=== PATIENT | male | born 1970 | race Caucasian/White ===

== ENCOUNTER 2017-10-30 06:44 | Day surgery (SDC) | payer OTHER ==
[2017-10-23 12:15] VITALS: BMI 22.4
[~2017-10-30 06:44] MED LIST: HEPARIN SODIUM,PORCINE 5,000 UNIT/ML 1 ML VIAL SQ ONE; MORPHINE SULFATE 2 MG/ML SYRINGE IV PRN; ceFAZolin IN SWFI 2 GM/20 ML SYRINGE IVP ONE
[2017-10-30] MEDS: LACTATED RINGERS 1,000 ML IV SCH ×3 (07:12→07:52)
[2017-10-30] MEDS: LIDOCAINE 1% 20 ML VIAL (10MG/ML) FOR IV START INTRADERMA ONE ×2 (07:13→07:16)
[2017-10-30 07:16] LABS: Glucose,Whole Blood 115 mg/dL (75-99)
[2017-10-30] MEDS ORDERED: ONDANSETRON 4 MG/2 ML VIAL IVP ONE (07:25)
[2017-10-30] MEDS ORDERED: DEXAMETHASONE SOD PHOSPHATE 10 MG/ML 1 ML VIAL IV ONE (07:27)
[2017-10-30] MEDS ORDERED: BUPIVACAINE (PF) 0.5% 30 ML VIAL SQ ONE ×2 (07:31→09:06)
--- NOTE | 2017-10-30 07:47 | P.GSHP ---
History of Present Illness H&P Date: 10/30/17 Chief Complaint: Right inguinal hernia, umbilical hernia This a 47-year-old male referred from Dr. Martinez. Patient rents today for laparoscopic robotic-assisted repair of right inguinal hernia and umbilical hernia. Past Medical History Past Medical History: No Reported History Additional Past Medical History / Comment(s): inguinal, umbilical hernia, recent injury rt shoulder/bicep History of Any Multi-Drug Resistant Organisms: None Reported Past Surgical History: Orthopedic Surgery Additional Past Surgical History / Comment(s): arthroscopic rt knee, bunionectomy lt foot, finger surgery Past Anesthesia/Blood Transfusion Reactions: No Reported Reaction Smoking Status: Current every day smoker - Past Family History Mother Family Medical History: No Reported History Medications and Allergies Home Medications Medication Instructions Recorded Confirmed Type Ibuprofen [Motrin] 800 mg PO DAILY PRN 10/23/17 10/30/17 History Muscle Relaxer (Unknown Name) 1 tab PO Q6H PRN 10/23/17 10/30/17 History Prednisone (Unknown Dose) 1 tab PO DIRECTED 10/23/17 10/30/17 History oxyCODONE-APAP 5-325MG [Percocet 1 tab PO ONCE PRN 10/30/17 10/30/17 History 5-325 mg] Allergies Allergy/AdvReac Type Severity Reaction Status Date / Time No Known Allergies Allergy Verified 10/30/17 06:52 Surgical - Exam Vital Signs Temp Pulse Resp BP Pulse Ox 99.4 F 100 16 132/80 98 10/30/17 07:05 10/30/17 07:05 10/30/17 07:05 10/30/17 07:05 10/30/17 07:05 - General well developed, no distress - Eyes PERRL - ENT normal pinna - Neck no masses - Respiratory normal expansion - Cardiovascular Rhythm: regular - Abdomen Abdomen: soft, non tender Hernia: inguinal (Reducible right inguinal hernia), umbilical Results - Labs Abnormal Lab Results - Last 24 Hours (Table) 10/30/17 Range/Units 07:10 POC Glucose (mg/dL) 115 H (75-99) mg/dL Assessment and Plan Assessment: Radial hernia, umbilical hernia. We'll perform laparoscopic robotic-assisted repair.
[2017-10-30] MEDS ORDERED: fentaNYL (PF) 50 MCG/ML 2 ML AMP ONE (07:52)
[2017-10-30] MEDS ORDERED: VECURONIUM 10 MG VIAL IV ONE (07:52)
[2017-10-30] MEDS ORDERED: GLYCOPYRROLATE 0.2 MG/ML 2 ML VIAL ONE (07:52)
[2017-10-30] MEDS ORDERED: PROPOFOL 10 MG/ML 20 ML VIAL IV ONE (07:52)
[2017-10-30] MEDS ORDERED: MIDAZOLAM 2 MG/2 ML VIAL ONE (07:52)
[2017-10-30] MEDS ORDERED: HYDROmorphone (PF) 1 MG/ML ONE (07:52)
[2017-10-30] MEDS ORDERED: NEOSTIGMINE 1 MG/ML 10 ML VIAL ONE (07:52)
[2017-10-30] MEDS ORDERED: SUCCINYLCHOLINE CHLORIDE 100 MG/5 ML SYR IV ONE (07:52)
[2017-10-30] MEDS ORDERED: LIDOCAINE 1% INJ 10MG/ML (20 ML MDV) ONE (07:52)
[2017-10-30] MEDS ORDERED: KETOROLAC 30 MG/ML 1 ML VIAL ONE (07:52)
[2017-10-30] MEDS: fentaNYL (PF) 50 MCG/ML 2 ML AMP IV PRN ×2 (09:23→09:48)
[2017-10-30 09:47] VITALS: TEMP 98.5
[2017-10-30 10:04] LABS: Glucose,Whole Blood 136 mg/dL (75-99)
[2017-10-30 10:06] VITALS: RESP 18
--- NOTE | 2017-10-30 10:18 | P.OP ---
Date of Procedure: 10/30/17 Preoperative Diagnosis: Right inguinal hernia Incarcerated umbilical hernia Postoperative Diagnosis: Bilateral inguinal hernia Incarcerated umbilical hernia Procedure(s) Performed: Laparoscopic robotic repair of bilateral internal hernia Laparoscopic repair of umbilical hernia Partial omentectomy Excision of left cord lipoma Anesthesia: SAM Surgeon: Nikko Murillo Estimated Blood Loss (ml): 5 Pathology: other (Omentum's, left cord lipoma) Condition: stable Disposition: PACU Description of Procedure: The patient was placed on the operating table in the supine position. The patient received general anesthesia. The patient's abdomen was prepped and draped in usual sterile fashion. The skin was anesthetized 1% local Xylocaine at the incision sites. Using an 11 blade a skin incision was made at the umbilicus. The patient had an incarcerated umbilical hernia. There was a piece of incarcerated omentum this was removed using electrocautery. The fascia was grasped with a Colver and then the peritoneal cavity was entered with the Veress needle. Position of the Veress needle was confirmed with a positive drop test. After adequate insufflation a 5 mm trocar was placed into the peritoneal cavity. The Laparoscope was placed the peritoneal cavity. And a robotic 8 mm trocar was placed in the right lateral position and then another 8 mm robotic trochars placed in the left lateral position. The original 5 mm trocar was exchanged for a 12 mm trocar. The patient was placed in reverse Trendelenburg and then the patient was docked to the robot. Next the peritoneum over top of the hernia was incised and then using blunt and sharp dissection and electrocautery the hernia sac was dissected free from the floor of the inguinal canal. The hernia sac was completely reduced into the peritoneal cavity. And then using the Pro slip cover seamstress mesh the hernia was repaired. The peritoneum was then sutured with 2-0V lock suture. The patient was noted to have a left inguinal hernia. The hernia was repaired in identical fashion. There was a cord lipoma excised from the cord. The patient was then undocked the robot. The needle was withdrawn from the peritoneal cavity. The cord lipoma was removed and sent to pathology. The umbilical hernia site was closed with 0 Ethibond suture. The skin was closed interrupted 3-0 Monocryl suture. Dermabond dressing was applied. Patient was sent to recovery in stable condition.
[2017-10-30] MEDS ORDERED: HYDROcodone/APAP 7.5-325MG 1 EACH TAB PO ONE (10:47)
[2017-10-30 10:57] VITALS: BP 128/88; PULSE 88
== END 2017-10-30 11:35 | disposition home or self-care (01) ==
LOC: OR 06:44
PROVIDERS: ATTEND Surgery
DX: K40.20 Bilateral inguinal hernia, without obstruction or gangrene, not specified as recurrent (principal); K42.0 Umbilical hernia with obstruction, without gangrene; D17.6 Benign lipomatous neoplasm of spermatic cord; Z79.52 Long term (current) use of systemic steroids; F17.210 Nicotine dependence, cigarettes, uncomplicated
CPT/HCPCS: 88304; 88305; 49650; 49653; 55559; C1781; J2250; J1644; J1100; J2710; J2405; J2001; J3010; J1885; J1170; J0330; J2704; J0690

== ENCOUNTER 2018-02-24 12:18 | Emergency (ER) | payer OTHER ==
[2018-02-24 12:32] VITALS: BP 111/69; PULSE 111; RESP 18; TEMP 98.1
[2018-02-24] MEDS ORDERED: KETOROLAC 30 MG/ML 1 ML VIAL IM STA (13:05)
--- NOTE | 2018-02-24 13:09 | ED ---
General Adult HPI - General Chief complaint: Extremity Injury, Lower Stated complaint: left knee injury Time Seen by Provider: 02/24/18 12:57 Source: patient Mode of arrival: ambulatory Limitations: no limitations - History of Present Illness Initial comments: 48 yoM presenting with left knee pain that began Sunday. He states he was playing with a dog when he felt a pop. Since then he has limited extension of his knee secondary to pain as well as intermittent swelling. He has been trying Tylenol arthritis with minimal relief. He states he has had issues like this in the past with the knee but it usually resolves with in a day or so. He denies any other injuries. - Related Data Home Medications Medication Instructions Recorded Confirmed buPROPion [Wellbutrin] 100 mg PO BID 02/24/18 02/24/18 lamoTRIgine [LaMICtal] 25 mg PO DAILY 02/24/18 02/24/18 risperiDONE 4 mg PO DAILY 02/24/18 02/24/18 Previous Rx's Medication Instructions Recorded Ibuprofen [Motrin] 600 mg PO Q6HR PRN #30 tab 02/24/18 Allergies Allergy/AdvReac Type Severity Reaction Status Date / Time No Known Allergies Allergy Verified 02/24/18 12:32 Review of Systems ROS Statement: Those systems with pertinent positive or pertinent negative responses have been documented in the HPI. Review of Systems Constitutional: Denies fever, chills Eyes: Denies change in vision, Denies pain Ears, nose, mouth, throat: Denies headaches, Denies sore throat Cardiovascular: Denies chest pain. Denies palpitations Respiratory: Denies shortness of breath, Denies cough Gastrointestinal: Denies abdominal pain. Denies nausea, vomiting, diarrhea. Genitourinary: Denies hematuria, Denies infections Musculoskeletal: Left knee pain and swelling. Integumentary: Denies rash Neurological: Denies headache, focal weakness, focal numbness Psychiatric: Denies anxiety, Denies depression Hematologic/Lymphatic: Denies easy bleeding or bruising ROS Other: All systems not noted in ROS Statement are negative. Past Medical History Past Medical History: No Reported History Additional Past Medical History / Comment(s): inguinal, umbilical hernia, recent injury rt shoulder/bicep History of Any Multi-Drug Resistant Organisms: None Reported Past Surgical History: Hernia Repair, Orthopedic Surgery Additional Past Surgical History / Comment(s): arthroscopic rt knee, bunionectomy lt foot, finger surgery Past Anesthesia/Blood Transfusion Reactions: No Reported Reaction Past Psychological History: Anxiety, Bipolar, Depression, PTSD Smoking Status: Current every day smoker Past Alcohol Use History: Occasional Past Drug Use History: None Reported - Past Family History Mother Family Medical History: No Reported History General Exam - General Exam Comments Initial Comments: General: Awake, alert, No acute Distress HENT: Normocephalic. Atraumatic Eyes: PERRL. EOMI. No scleral icterus. No injected conjunctiva Neck: Full ROM Chest/Lungs: Clear to auscultation bilaterally. No wheezing, rhonchi, or rales Cardiac: Regular rate, rhythm. No murmurs or rubs Abdomen/GI: [Soft, nontender, nondistended. No rebound, guarding, or rigidity. Musculoskeletal: Right bicep deformity (chronic). Mild anterior left knee swelling. Full passive and active ROM. 2+ DP pulse. No joint laxity. Negative anterior and posterior drawer sign. Skin: Warm, dry, intact Neurologic: A/Ox3, no weakness, no sensory deficit, no abnormal gait, no coordination deficit Limitations: no limitations Course Vital Signs 02/24/18 12:30 Temperature 98.1 F Pulse Rate 111 H Respiratory 18 Rate Blood Pressure 111/69 O2 Sat by Pulse 97 Oximetry Medical Decision Making - Medical Decision Making 48 yoM presenting with left knee pain. On initial exam the patient is awake, alert, and in NAD. VSS. Patient's xray shows small knee effusion. He is able to ambulate. He declined ulisses wrap as he has a knee sleeve at home. Patient states he has seen Dr. Hess in the past. No further emergent workup indicated. The patient was given return to ED instructions. They were instructed to follow up with their primary care provider. Stable for discharge at this time. Disposition Clinical Impression: Effusion, left knee Disposition: HOME SELF-CARE Condition: Good Instructions: Knee Sprain (ED) Additional Instructions: Call Dr. Hess tomorrow for orthopedic follow up. Do not engage in physical activity. Prescriptions: Ibuprofen [Motrin] 600 mg PO Q6HR PRN #30 tab PRN Reason: Pain Is patient prescribed a controlled substance at d/c from ED?: No Referrals: Gregg Mcmillan MD [Primary Care Provider] - 1-2 days
--- NOTE | 2018-02-24 14:35 | XR ---
EXAMINATION TYPE: XR knee complete LT DATE OF EXAM: 02/24/2018 COMPARISON: NONE HISTORY: Pain TECHNIQUE: Three-view left knee FINDINGS: Joint spaces are preserved. No acute fractures are evident. Small joint effusion may be pre sent. IMPRESSION: 1. Clinical correlation recommended for small joint effusion. 2. No acute osseous abnormality evident.
== END 2018-02-24 14:58 | disposition home or self-care (01) ==
LOC: EC 12:18
DX: M25.462 Effusion, left knee (principal); F31.9 Bipolar disorder, unspecified; F41.9 Anxiety disorder, unspecified; F43.10 Post-traumatic stress disorder, unspecified; F17.200 Nicotine dependence, unspecified, uncomplicated; Z79.899 Other long term (current) drug therapy
CPT/HCPCS: 73562; 99283; 96372; J1885

== ENCOUNTER → 2018-03-27 | Outpatient (CLI) | payer OTHER ==
--- NOTE | 2018-03-27 14:13 | MR ---
EXAMINATION TYPE: MR knee LT wo con DATE OF EXAM: 03/27/2018 COMPARISON: X-ray 02/24/2018 HISTORY: Left knee pain TECHNIQUE: Multiplanar, multisequence imaging of the left knee is performed without IV contrast. FINDINGS: There is nonvisualization of the ACL compatible with ACL tear likely chronic given the dimi nished amount of edema. PCL is intact. MCL and LCL ligaments intact. There is a complex bucket-handle tear involving the medial meniscus. Tiny adjacent meniscal cyst. Lateral meniscus demonstrate intrasubstance signal. Question a subtle tear within the body of the men iscus. There is an area of marrow edema involving the proximal fibula. Patellar and quadriceps tendons are i ntact. Trace amount of fluid is in the suprapatellar bursa. Patellar cartilage intact. There is a 3 cm popliteal fossa cyst with adjacent fluid likely representing a ruptured popliteal fos sa Kurtz's cyst. IMPRESSION: 1. Complex bucket handle tear medial meniscus. 2. ACL tear which may be chronic. 3. There is a 3 cm popliteal fossa cyst with adjacent fluid suggestive of ruptured or leaking Kurtz's cyst. 4. Question a subtle tear involving the body of the lateral meniscus.
== END | disposition home or self-care (01) ==
LOC: RADMRIMAIN 12:28
PROVIDERS: ATTEND Internal Medicine
DX: S83.212A Bucket-handle tear of medial meniscus, current injury, left knee, initial encounter (principal); S83.512A Sprain of anterior cruciate ligament of left knee, initial encounter; M71.22 Synovial cyst of popliteal space [Baker], left knee

== ENCOUNTER 2021-10-06 00:28 | Inpatient (IN) | payer MEDICAID, OTHER ==
[2021-10-06 02:25] LABS: Amphetamine Screen,Urine Detected (NotDetected); Barbiturate Screen,Urine Not Detected (NotDetected); Benzodiazepines Screen,Urine Not Detected (NotDetected); Cocaine Screen,Urine Not Detected (NotDetected); Methadone Screen, Urine Not Detected (NotDetected); Opiate Screen,Urine Not Detected (NotDetected); Oxycodone Screen, Urine Not Detected (NotDetected); Phencyclidine Screen,Urine Not Detected (NotDetected); Tricyclic Antidepressant,Urine Not Detected (NotDetected); Urn Cannabinoid Scrn Detected (NotDetected)
[2021-10-06] MEDS ORDERED: ACETAMINOPHEN TAB 325 MG TAB PO PRN (04:09)
[2021-10-06] MEDS ORDERED: MAG HYDROX/AL HYDROX/SIMETH 30 ML CUP PO PRN (04:09)
[2021-10-06] MEDS ORDERED: HALOPERIDOL LACTATE 5 MG/ML 1 ML VIAL IM PRN (04:09)
[2021-10-06] MEDS ORDERED: MAGNESIUM HYDROXIDE 2,400 MG/10 ML CUP PO PRN (04:09)
[2021-10-06] MEDS ORDERED: haloperidoL 5 MG TAB PO PRN (04:13)
[2021-10-06] MEDS ORDERED: LORazepam 1 MG TAB PO PRN (04:14)
[2021-10-06] MEDS ORDERED: LORazepam 2 MG/ML INJ IM PRN (04:14)
[2021-10-06] MEDS ORDERED: IBUPROFEN 600 MG TAB PO PRN (04:16)
--- NOTE | 2021-10-06 04:24 | ED ---
Psych HPI - General Chief Complaint: Psychiatric Symptoms Stated Complaint: Mental Health Time Seen by Provider: 10/06/21 01:04 Source: police Mode of arrival: ambulatory - History of Present Illness Initial Comments: This patient is a 51-year-old man brought to have evaluation after he had called law enforcement agency and described strange men on his property. He states that there is a hollow tree on the property and that he noticed 3 - [place] man with those and arrows who were in the tree. [employer]ungs enforcement reportedly came to the site and did not find anyone and brought him here to have evaluation. MD Complaint: other -: unknown Associated Psychiatric Symptoms: racing thoughts, delusions History of same: Yes Quality: getting worse Improves With: none Worsens With: none Associated Symptoms: denies other symptoms - Related Data Home Medications Medication Instructions Recorded Confirmed buPROPion [Wellbutrin] 100 mg PO BID 02/24/18 02/24/18 lamoTRIgine [LaMICtal] 25 mg PO DAILY 02/24/18 02/24/18 risperiDONE 4 mg PO DAILY 02/24/18 02/24/18 Previous Rx's Medication Instructions Recorded Ibuprofen [Motrin] 600 mg PO Q6HR PRN #30 tab 02/24/18 Allergies Allergy/AdvReac Type Severity Reaction Status Date / Time No Known Allergies Allergy Verified 10/06/21 00:47 Review of Systems ROS Statement: Those systems with pertinent positive or pertinent negative responses have been documented in the HPI. ROS Other: All systems not noted in ROS Statement are negative. Constitutional: Denies: fever, chills Eyes: Denies: vision change Respiratory: Denies: cough, dyspnea Cardiovascular: Denies: chest pain, palpitations, syncope Gastrointestinal: Denies: abdominal pain, vomiting, diarrhea Genitourinary: Denies: dysuria, hematuria Musculoskeletal: Denies: back pain Skin: Denies: rash Neurological: Denies: headache, weakness Psychiatric: Reports: as per HPI, anxiety, visual hallucinations. Denies: depression, homicidal thoughts, suicidal thoughts Past Medical History Past Medical History: No Reported History Additional Past Medical History / Comment(s): inguinal, umbilical hernia, recent injury rt shoulder/bicep History of Any Multi-Drug Resistant Organisms: None Reported Past Surgical History: Hernia Repair, Orthopedic Surgery Additional Past Surgical History / Comment(s): arthroscopic rt knee, bunionectomy lt foot, finger surgery Past Anesthesia/Blood Transfusion Reactions: No Reported Reaction Past Psychological History: Anxiety, Bipolar, Depression, PTSD Smoking Status: Current every day smoker Past Alcohol Use History: Occasional Past Drug Use History: None Reported - Past Family History Mother Family Medical History: No Reported History General Exam General appearance: alert, in no apparent distress, anxious Head exam: Present: atraumatic, normocephalic Eye exam: Present: normal appearance. Absent: scleral icterus, conjunctival injection Neck exam: Present: normal inspection Respiratory exam: Present: normal lung sounds bilaterally. Absent: respiratory distress, wheezes, rales, rhonchi, stridor Cardiovascular Exam: Present: normal rhythm, tachycardia, normal heart sounds. Absent: systolic murmur, diastolic murmur, rubs, gallop GI/Abdominal exam: Present: soft. Absent: distended, tenderness, guarding, rebound, rigid, mass Extremities exam: Present: normal inspection, normal capillary refill. Absent: pedal edema, calf tenderness Back exam: Present: normal inspection Neurological exam: Present: alert, oriented X3. Absent: motor sensory deficit Psychiatric exam: Present: anxious, manic. Absent: flat affect, homicidal ideation, suicidal ideation Skin exam: Present: warm, dry, intact, normal color. Absent: rash Course Vital Signs 10/06/21 00:43 Temperature 98.4 F Pulse Rate 124 H Respiratory 16 Rate Blood Pressure 105/67 O2 Sat by Pulse 97 Oximetry Medical Decision Making - Lab Data Lab Results 10/06/21 10/06/21 Range/Units 01:54 03:20 Urine Opiates Screen Not Detected (NotDetected) Ur Oxycodone Screen Not Detected (NotDetected) Urine Methadone Screen Not Detected (NotDetected) Ur Propoxyphene Screen Not Detected (NotDetected) Ur Barbiturates Screen Not Detected (NotDetected) U Tricyclic Antidepress Not Detected (NotDetected) Ur Phencyclidine Scrn Not Detected (NotDetected) Ur Amphetamines Screen Detected H (NotDetected) U Methamphetamines Scrn Detected H (NotDetected) U Benzodiazepines Scrn Not Detected (NotDetected) Urine Cocaine Screen Not Detected (NotDetected) U Marijuana (THC) Screen Detected H (NotDetected) Coronavirus (PCR) Not Detected (Not Detectd) Disposition Clinical Impression: Psychosis Disposition: ADMITTED IP TO THIS HOSP Condition: Fair Is patient prescribed a controlled substance at d/c from ED?: No
[2021-10-06] MEDS ORDERED: buPROPion 100 MG TAB PO SCH (09:00)
[2021-10-06] MEDS ORDERED: risperiDONE 2 MG TAB PO SCH ×2 (09:00→21:00)
[2021-10-06] MEDS: NICOTINE 14MG/24HR PATCH TRANSDERM SCH (09:07)
[2021-10-06] MEDS: lamoTRIgine 25 MG TAB PO SCH (09:07)
[2021-10-06] MEDS ORDERED: ALBUTEROL HFA INHALER INHALATION PRN (09:24)
--- NOTE | 2021-10-06 09:30 | P.CONS ---
History of Present Illness - Reason for Consult COPD - History of Present Illness Patient is a 51-year-old male was about to the hospital for visual hallucinations, found to have a urine drug screen positive for amphetamines and marijuana. Patient was subsequently admitted to psychiatric floor for acute p sychosis. Patient is alert and oriented 3 patient was not having any hallucinations when I evaluated the patient patient denied any medical complaints at this time. Patient does smoke 1 pack of 6 per day and he is willing to quit smoking. REVIEW OF SYSTEMS: CONSTITUTIONAL: No fever, no malaise, no fatigue. HEENT: No recent visual problems or hearing problems. Denied any sore throat. CARDIOVASCULAR: No chest pain, orthopnea, PND, no palpitations, no syncope. PULMONARY: No shortness of breath, no cough, no hemoptysis. GASTROINTESTINAL: No diarrhea, no nausea, no vomiting, no abdominal pain. NEUROLOGICAL: No headaches, no weakness, no numbness. HEMATOLOGICAL: Denies any bleeding or petechiae. GENITOURINARY: Denies any burning micturition, frequency, or urgency. MUSCULOSKELETAL/RHEUMATOLOGICAL: Denies any joint pain, swelling, or any muscle pain. ENDOCRINE: Denies any polyuria or polydipsia. The rest of the 14-point review of systems is negative. PHYSICAL EXAMINATION: GENERAL: The patient is alert and oriented x3, not in any acute distress. Well developed, well nourished. HEENT: Pupils are round and equally reacting to light. EOMI. No scleral icterus. No conjunctival pallor. Normocephalic, atraumatic. No pharyngeal erythema. No thyromegaly. CARDIOVASCULAR: S1 and S2 present. No murmurs, rubs, or gallops. PULMONARY: Mild expiratory wheezing on exam ABDOMEN: Soft, nontender, nondistended, normoactive bowel sounds. No palpable organomegaly. MUSCULOSKELETAL: No joint swelling or deformity. EXTREMITIES: No cyanosis, clubbing, or pedal edema. NEUROLOGICAL: Gross neurological examination did not reveal any focal deficits. SKIN: No rashes. Assessment and plan 1 COPD with mild acute exacerbation patient was started on albuterol inhalational as-needed basis as well as 3 times a day, counseling regarding smoking cessation was provided -Visual hallucinations probably related to amphetamine and marijuana use -Tachycardia probably secondary to psychosis when I evaluated patient was not tachycardic --Drug abuse and nicotine use: Counseling was provided patient denied using IV drugs in the past -Bipolar disorder management as per primary service Past Medical History Past Medical History: No Reported History Additional Past Medical History / Comment(s): inguinal, umbilical hernia, recent injury rt shoulder/bicep History of Any Multi-Drug Resistant Organisms: None Reported Past Surgical History: Hernia Repair, Orthopedic Surgery Additional Past Surgical History / Comment(s): arthroscopic rt knee, bunionectomy lt foot, finger surgery Past Anesthesia/Blood Transfusion Reactions: No Reported Reaction Past Psychological History: Anxiety, Bipolar, Depression, PTSD Smoking Status: Current every day smoker Past Alcohol Use History: Occasional Additional Past Alcohol Use History / Comment(s): smoker 35 years 1 ppd Past Drug Use History: None Reported Additional Drug Use History / Comment(s): denies current drug use - Past Family History Mother Family Medical History: No Reported History Medications and Allergies Home Medications Medication Instructions Recorded Confirmed Type Ibuprofen [Motrin] 600 mg PO Q6HR PRN #30 tab 02/24/18 Rx buPROPion [Wellbutrin] 100 mg PO BID 02/24/18 02/24/18 History lamoTRIgine [LaMICtal] 25 mg PO DAILY 02/24/18 02/24/18 History risperiDONE 4 mg PO DAILY 02/24/18 02/24/18 History Allergies Allergy/AdvReac Type Severity Reaction Status Date / Time No Known Allergies Allergy Verified 10/06/21 00:47 Physical Exam Vitals: Vital Signs Temp Pulse Pulse Resp BP BP Pulse Ox 10/06/21 05:08 97.6 F 113 H 18 108/59 98 10/06/21 04:09 106 H 16 114/76 98 10/06/21 00:43 98.4 F 124 H 16 105/67 97 Intake and Output 10/05/21 10/06/21 10/06/21 22:59 06:59 14:59 Other: Weight 67 kg Results Labs: Abnormal Lab Results - Last 24 Hours (Table) 10/06/21 Range/Units 01:54 Ur Amphetamines Screen Detected H (NotDetected) U Methamphetamines Scrn Detected H (NotDetected) U Marijuana (THC) Screen Detected H (NotDetected)
[2021-10-06] MEDS ORDERED: LOPERAMIDE 2 MG CAP PO PRN (09:59)
[2021-10-06] MEDS ORDERED: ONDANSETRON 4 MG TAB PO PRN (09:59)
--- NOTE | 2021-10-06 13:05 | P.HP ---
Psychiatric H&P - . H&P Date: 10/06/21 History & Physical: Allergies Allergy/AdvReac Type Severity Reaction Status Date / Time No Known Allergies Allergy Verified 10/06/21 00:47 Vital Signs Temp 98.5 F 10/06/21 08:00 Pulse 101 H 10/06/21 11:04 Resp 18 10/06/21 10:25 BP 96/55 10/06/21 11:04 Pulse Ox 97 10/06/21 08:00 Intake & Output 10/05/21 10/06/21 10/06/21 18:59 06:59 18:59 Weight 67 kg Laboratory Last Values Urine Opiates Screen Not Detected (NotDetected) 10/06/21 01:54 Ur Oxycodone Screen Not Detected (NotDetected) 10/06/21 01:54 Urine Methadone Screen Not Detected (NotDetected) 10/06/21 01:54 Ur Propoxyphene Screen Not Detected (NotDetected) 10/06/21 01:54 Ur Barbiturates Screen Not Detected (NotDetected) 10/06/21 01:54 U Tricyclic Antidepress Not Detected (NotDetected) 10/06/21 01:54 Ur Phencyclidine Scrn Not Detected (NotDetected) 10/06/21 01:54 Ur Amphetamines Screen Detected (NotDetected) H 10/06/21 01:54 U Methamphetamines Scrn Detected (NotDetected) H 10/06/21 01:54 U Benzodiazepines Scrn Not Detected (NotDetected) 10/06/21 01:54 Urine Cocaine Screen Not Detected (NotDetected) 10/06/21 01:54 U Marijuana (THC) Screen Detected (NotDetected) H 10/06/21 01:54 Coronavirus (PCR) Not Detected (Not Detectd) 10/06/21 03:20 10/06/21 13:05 IDENTIFYING DATA: Patient is a single, unemployed, 51-year-old male with a significant history of anxiety, bipolar disorder, and PTSD who presented to the emergency department under petition and certification by police for hallucinations. HPI: Patient presented to the hospital on 10/06/2021, brought in by police under petition and certification for hallucinations. As per petition filled out by physics technical officer, "Nico called police because people were in his trees with bows and arrows. Upon arrival, Vlad was saying he could see men in the tree. He stated he could see them currently. There were no men in this tree." As per initial certification, the patient was noted to be paranoid and endorsing significant delusions. As for EPS report, the patient did report that he had a substance abuse history and that he was detoxing from alcohol. He was presenting with significant elevation in psychomotor activity and was elusive with a lot of the questions that were asked of him. The patient did however confirm that he was seeing men in trees with bows and arrows. Upon evaluation on the psychiatric unit, the patient expresses that he is undergoing opiate withdrawal at this time. He states that he takes Suboxone at home. The patient did test positive for methamphetamines however vehemently denies that he uses any methamphetamines at all. The patient does endorse visual hallucinations stating that he was seeing people in the trees of his home. He reports that this is new to him as he has previously experienced auditory hallucinations in the past but not any visual hallucinations. He reports that these people in his trees did not speak or move but pointed arrows at him. In regards to mood, the patient is not endorsing any suicidal or homicidal ideation, intention, and/or plan. However he was noted in group this morning to note that he has been expressing some homicidal ideation. He is not reporting any auditory or visual hallucinations at this time. He reports no paranoia or other delusions. The patient states he is agreeable to taking medications as he has been in a psychiatric unit before and "knows the drill." As patient was experiencing significant withdrawals, he wish to go back to bed and sleep. PAST PSYCHIATRIC HISTORY: Patient states that he has been previously diagnosed with bipolar and PTSD. His home medications include Risperdal, Lamictal, Wellbutrin, and Motrin. However, staff has noted that the patient has not picked up the scripts in quite some time. Does report at least 2 prior psychiatric hospitalizations but states that it has been many years. Patient reports that he was following up in outpatient provider however staff has been unable to confirm this. He reports 2 prior attempts at suicide. PMH: Past Medical History: No Reported History Additional Past Medical History / Comment(s): inguinal, umbilical hernia, recent injury rt shoulder/bicep History of Any Multi-Drug Resistant Organisms: None Reported Past Surgical History: Hernia Repair, Orthopedic Surgery Additional Past Surgical History / Comment(s): arthroscopic rt knee, bunionectomy lt foot, finger surgery Past Anesthesia/Blood Transfusion Reactions: No Reported Reaction Past Psychological History: Anxiety, Bipolar, Depression, PTSD Smoking Status: Current every day smoker Past Alcohol Use History: Occasional Past Drug Use History: None Reported ALLERGIES: NO KNOWN DRUG ALLERGIES CHEMICAL DEPENDENCY HISTORY: Patient denies any illicit drug use. The patient did however test positive for methamphetamines. He currently receives Suboxone for opiate agonist therapy however is unable to provide any details regarding this. He reports that he does smoke cigarettes daily. He denies any heavy alcohol use. FAMILY PSYCHIATRIC/SUBSTANCE USE HISTORY: Unable to obtain SOCIAL HISTORY: Patient is listed a single however identifies a partner that he has been with for at least 2 years. He was honorably discharged from the [employer] in 1990. Unable to obtain any further history at this time. MENTAL STATUS EXAM: General Appearance: Patient appears to be stated age is alert, directable, and attempts to cooperate. Patient appears to have poor hygiene and grooming. Patient has multiple tattoos and appears slightly disheveled. Behavior: Patient is seated but displays psychomotor agitation. Eye contact is appropriate. Speech: Patient's speech is fluent and nonpressured. Mood/Affect: Patient reports their mood is not feeling good." Affect is congruent and malaised. Suicidality/Homicidality: Patient denies having any homicidal ideation intent or plan. Denies any suicidal ideations intent or plan Perceptions: Patient denies any visual hallucinations and denies any auditory hallucinations Though content/process: There is no evidence of any delusional thought content and thought process is linear and goal-directed. Memory and concentration: AOX person and place only - , grossly intact for the purposes of this session. Can spell "WORLD" backwards Judgment and insight: poor STRENGTHS/WEAKNESSES: Strength is that the patient appears to be resilient. He is also cooperative. Weakness is that patient engages in substance use. INTELLECT: average IMPRESSIONS: Acute psychosis, likely secondary to substance induced psychosis As per history, bipolar disorder and PTSD Nicotine dependence Methamphetamine abuse Opioid use disorder, on agonist therapy PLAN: -Patient is admitted under voluntary status to [facility] for stabilization of psychiatric symptoms and safety. Patient signed adult voluntary form and medication consent and is placed in patient's chart. -Medications : Risperdal 2 mg by mouth twice a day for mood stabilization/psychosis Trazodone 100 mg daily at bedtime for insomnia Lamictal 25 mg by mouth daily for mood stabilization Will place symptomatic medication management for opiate withdrawal. Catapres, Zofran, Imodium, Motrin, and trazodone when necessary -Ativan and Haldol PRN for agitation/aggression -Patient was counselled on substance abuse and desired to cut back on use -Patient was informed of the risks, benefits and side effects of the medication and patient verbally consented to taking the medications. Patient signed med consent form and was placed in chart. -Internal Medicine consult to perform medical evaluation and physical. -NRT - nicotine patch -SW on board for discharge planning. Encourage patient to participate in groups to work on coping skills. 10/06/21 13:05
[2021-10-06 13:40] LABS: Glucose,Whole Blood 217 mg/dL (75-99)
--- NOTE | 2021-10-06 14:15 | XR ---
EXAMINATION TYPE: XR skull limited DATE OF EXAM: 10/06/2021 COMPARISON: NONE HISTORY: Left-sided laceration injury with pain TECHNIQUE: 2 views skull are performed FINDINGS: No obvious linear lucency or acute skull fracture. Overlying soft tissue is unremarkable. IMPRESSION: As above.
[2021-10-06] MEDS: ALBUTEROL HFA INHALER INHALATION SCH ×2 (15:16→20:56)
[2021-10-06] MEDS: traZODone HCL 100 MG TAB PO SCH (20:57)
[2021-10-06] MEDS: risperiDONE 1 MG TAB PO SCH (20:57)
[2021-10-06] MEDS ORDERED: cloNIDine HCL 0.1 MG TAB PO SCH (21:00)
[2021-10-07] MEDS: risperiDONE 1 MG TAB PO SCH ×2 (08:26→21:36)
[2021-10-07] MEDS: lamoTRIgine 25 MG TAB PO SCH (08:26)
[2021-10-07] MEDS: NICOTINE 14MG/24HR PATCH TRANSDERM SCH (08:26)
[2021-10-07] MEDS: IBUPROFEN 600 MG TAB PO PRN (08:28)
[2021-10-07] MEDS: cloNIDine HCL 0.1 MG TAB PO PRN (08:29)
[2021-10-07] MEDS: ALBUTEROL HFA INHALER INHALATION SCH ×3 (08:59→21:35)
[2021-10-07 10:24] LABS: Basophils % (A) 0 %; Eosinophils # (A) 0.1 k/uL (0-0.7); Eosinophils % (A) 1 %; HCT 44.5 % (39.0-53.0); HGB 14.9 gm/dL (13.0-17.5); Lymphocytes # (A) 1.1 k/uL (1.0-4.8); Lymphocytes % (A) 13 %; MCH 36.4 pg (25.0-35.0); MCHC 33.5 g/dL (31.0-37.0); MCV 108.9 fL (80.0-100.0); Macrocytosis Moderate; Mean Platelet Volume 7.5; Monocytes # (A) 0.5 k/uL (0-1.0); Monocytes % (A) 6 %; Neutrophils # (A) 6.3 k/uL (1.3-7.7); Neutrophils % (A) 77 %; Platelet Count 246 k/uL (150-450); RBC 4.09 m/uL (4.30-5.90); RDW 12.9 % (11.5-15.5); WBC 8.2 k/uL (3.8-10.6)
[2021-10-07 10:40] LABS: ALT 109 U/L (4-49); AST 149 U/L (17-59); African American GFR (CKD) >90 (>60 ml/min/1.73 sqM); Albumin 4.2 g/dL (3.5-5.0); Alkaline Phosphatase 103 U/L (38-126); Anion Gap 6 mmol/L; Blood Urea Nitrogen 25 mg/dL (9-20); Calcium 9.6 mg/dL (8.4-10.2); Carbon Dioxide 28 mmol/L (22-30); Chloride 101 mmol/L (98-107); Glucose 140 mg/dL (74-99); Non-African American GFR(CKD) >90 (>60 ml/min/1.73 sqM); Potassium 3.7 mmol/L (3.5-5.1); Sodium 135 mmol/L (137-145); Total Bilirubin 1.6 mg/dL (0.2-1.3); Total Protein 6.9 g/dL (6.3-8.2)
--- NOTE | 2021-10-07 12:14 | P.PN ---
Progress Note - Text Progress Note Date: 10/07/21 Interval History: Patient was seen resting in bed and was directable and agreeable to speak with typewriter mechanic in his room. The patient is reporting that he is feeling significantly better. He is currently alert and oriented in all spheres and is denying any suicidal or homicidal ideation, intention, and/or plan. He is not reporting any auditory or visual hallucinations. He reports that his withdrawal symptoms are being managed well. The patient does express that he was quite altered and was expressing hallucinations prior to this admission. He is agreeable to be monitored while his medications are titrated in response to his symptoms. The patient does not recall ever using methamphetamines suspect testing positive for methamphetamines prior to this presentation to the hospital. Mental Status Exam: General Appearance: Patient appears to be stated age is alert, directable, and cooperative. Behavior: Patient is calmly seated without any agitated behavior. Speech: Patient's speech is fluent and nonpressured. Mood/Affect: Mood is improving mildly, affect is congruent and constricted. Suicidality/Homicidality: Patient denies having any suicidal or homicidal ideation intent or plan. Perceptions: Patient denies any visual hallucinations and denies any auditory hallucinations Though content/process: There is no evidence of any delusional thought content and thought process is linear and goal-directed. Memory and concentration: AOX3, grossly intact for the purposes of this session Judgment and insight: Improving mildly Vital Signs Temp 97.7 F 10/07/21 08:24 Pulse 113 H 10/07/21 08:24 Resp 18 10/07/21 08:24 BP 122/81 10/07/21 08:24 Pulse Ox 99 10/07/21 08:24 Laboratory Results - Last 24 Hours 10/06/21 10/07/21 10/07/21 13:35 10:12 10:12 WBC 8.2 RBC 4.09 L Hgb 14.9 Hct 44.5 MCV 108.9 H MCH 36.4 H MCHC 33.5 RDW 12.9 Plt Count 246 MPV 7.5 Neutrophils % 77 Lymphocytes % 13 Monocytes % 6 Eosinophils % 1 Basophils % 0 Neutrophils # 6.3 Lymphocytes # 1.1 Monocytes # 0.5 Eosinophils # 0.1 Basophils # 0.0 Macrocytosis Moderate Sodium 135 L Potassium 3.7 Chloride 101 Carbon Dioxide 28 Anion Gap 6 BUN 25 H Creatinine 0.91 Est GFR (CKD-EPI)AfAm >90 Est GFR (CKD-EPI)NonAf >90 Glucose 140 H POC Glucose (mg/dL) 217 H POC Glu Cosmetician Apprentice ID Jennie Mays Calcium 9.6 Total Bilirubin 1.6 H AST 149 H ALT 109 H Alkaline Phosphatase 103 Total Protein 6.9 Albumin 4.2 TSH 0.975 Assessment Acute psychosis, likely secondary to substance induced psychosis As per history, bipolar disorder and PTSD Nicotine dependence Methamphetamine abuse Opioid use disorder, on agonist therapy Plan: -Patient continues to meet criteria for inpatient psychiatric admission for symptom stabilization and safety. Patient has signed adult voluntary form and medication consent and was placed in patient's chart. -Medications: Risperdal 1 mg by mouth twice a day for mood stabilization/psychosis Trazodone 100 mg daily at bedtime for insomnia Lamictal 25 mg by mouth daily for mood stabilization -When necessary Ativan and Haldol for agitation/aggression. -NRT - nicotine patch -SW on board for discharge planning. Encouraged the patient to participate in milieu.
[2021-10-07 15:51] LABS: Chol/HDL Ratio 1.92 Ratio; LDL Cholesterol,Calculated 61.6 mg/dL (0.0-131.0); VLDL Calculation 19.82 mg/dL (5.00-40.00)
[2021-10-07] MEDS: traZODone HCL 100 MG TAB PO SCH (21:36)
[2021-10-08] MEDS: ALBUTEROL HFA INHALER INHALATION SCH ×3 (07:50→21:50)
[2021-10-08] MEDS: NICOTINE 14MG/24HR PATCH TRANSDERM SCH (07:50)
[2021-10-08] MEDS: lamoTRIgine 25 MG TAB PO SCH (07:51)
[2021-10-08] MEDS: risperiDONE 1 MG TAB PO SCH (07:51)
[2021-10-08] MEDS: IBUPROFEN 600 MG TAB PO PRN ×2 (07:52→18:23)
[2021-10-08 11:15] LABS: ALT 110 U/L (4-49); AST 136 U/L (17-59); African American GFR (CKD) >90 (>60 ml/min/1.73 sqM); Albumin 4.1 g/dL (3.5-5.0); Alkaline Phosphatase 87 U/L (38-126); Anion Gap 6 mmol/L; Blood Urea Nitrogen 16 mg/dL (9-20); Calcium 9.5 mg/dL (8.4-10.2); Carbon Dioxide 28 mmol/L (22-30); Chloride 103 mmol/L (98-107); Glucose 129 mg/dL (74-99); Non-African American GFR(CKD) >90 (>60 ml/min/1.73 sqM); Potassium 3.6 mmol/L (3.5-5.1); Sodium 137 mmol/L (137-145); Total Protein 6.6 g/dL (6.3-8.2)
[2021-10-08] MEDS: cloNIDine HCL 0.1 MG TAB PO PRN (13:00)
[2021-10-08] MEDS: BENZTROPINE MESYLATE 1 MG TAB PO SCH ×2 (14:57→21:45)
--- NOTE | 2021-10-08 16:18 | P.PN ---
Progress Note - Text Progress Note Date: 10/08/21 CHIEF COMPLAINT The patient was having visual hallucinations and delusional thinking, and states he has a diagnosis of schizoaffective disorder. INTERVAL HISTORY The patient has been doing fairly well. He had a quiet day yesterday. He comes out on the unit. He will interact with others. He will walk around the unit. He did attend 1 group yesterday. He reports that he did not sleep very well last night and that he tossed and turned much of the night. He states that he has restless legs at night. Today he's been up and continues to wander about the unit and often now walking with one another peer. He acknowledges substance use issues and has some awareness about expectations of the withdrawal from Suboxone. As also noted he has been smoking marijuana regularly though not in the last few days. He understands that he will likely have significant withdrawal issues from marijuana as well. He says that he has been on Suboxone for about 3 months and hopes that he can get his life situation stabilized to where he then couldn't get off of Suboxone and be in a situation where he would be away from any risks for relapse. He has a GED and has some interest in going back to school for computer programming. He acknowledges that he has had a history of auditory hallucinations though says he was taken back by the understanding that he may actually have been experiencing visual hallucinations. He suggested that he was writing the fence as to whether his experiences of seeing people were real or not. He tolerates his psychotropic medications. MENTAL STATUS EXAM Patient was somewhat restless. He gave good eye contact. He answered questions appropriately. His thoughts were clear, coherent, and goal directed. He was spontaneous and interactive. His affect was in a reasonable range. His mood was reserved. He didn't appear to be significantly distressed. He did not show response to internal stimuli. He was not reporting auditory or visual hallucinations at the time of the interview. He voiced no thoughts of harm. He was oriented and alert. ASSESSMENT/PLAN I will continue the current diagnosis and treatment plan. We will continue to make efforts to engage the patient in individual and group therapeutic activities. I will increase the patient's Restoril to 4 mg at bedtime which is the dose he apparently was taking at home prior to admission. I reviewed the indication for Risperdal including to address psychotic symptoms as well as to reduce physiologic stress response related to acute substance withdrawal. I had an extensive discussion with the patient regarding withdrawal issues including expectations and time course of withdrawal. We discussed long-term issues relating to use his Suboxone and potential withdrawal to move away from the its use. I discussed issues relating to Risperdal including concerns relating to metabolic syndrome movement disorder issues. We will start the patient on Cogentin 1 mg twice a day. The restless legs that he is having at night may in part related to withdrawal as well as to his Risperdal use. We will focus on stabilization and discharge planning.
--- NOTE | 2021-10-08 16:57 | P.PN ---
Progress Note - Text Progress Note Date: 10/08/21 CHIEF COMPLAINT The patient was having visual hallucinations and delusional thinking, and states he has a diagnosis of schizoaffective disorder. INTERVAL HISTORY The patient has been doing fairly well. He had a quiet day yesterday. He comes out on the unit. He will interact with others. He will walk around the unit. He did attend 1 group yesterday. He reports that he did not sleep very well last night and that he tossed and turned much of the night. He states that he has restless legs at night. Today he's been up and continues to wander the unit. He acknowledges substance use issues and has some awareness about expectations of the withdrawal from Suboxone. As also noted he has been smoking marijuana regularly though not in the last few days. He understands that he will likely have significant withdrawal issues from marijuana as well. He also notes significant use of alcohol though he was vague on specifics and indicated that he had been cutting his drinking down of late. He acknowledges that he has had a history of auditory hallucinations though says he was taken back by the understanding that he may actually have been experiencing visual hallucinations. He suggested that he was writing the fence as to whether his experiences of seeing people were real or not. Vital signs have been relatively stable with BP running low. His vital signs this morning at 0745 include BP 96/61, pulse 108, respirations 20, oxygen saturation 100, temperature 97.5. It's noted he has elevated LFTs with AST 149 ALT 109 in addition hemoglobin is 14.9 with an MCV of 109 and an MCH of 36.4. He tolerates his psychotropic medications. MENTAL STATUS EXAM Patient was somewhat restless. He gave good eye contact. He answered questions appropriately. His thoughts were clear, coherent, and goal directed. He was spontaneous and interactive. His affect was in a reasonable range. His mood was reserved. He didn't appear to be significantly distressed. He did not show response to internal stimuli. He was not reporting auditory or visual hallucinations at the time of the interview. He voiced no thoughts of harm. He was oriented and alert. ASSESSMENT/PLAN I will continue the current diagnosis and treatment plan. We will continue to make efforts to engage the patient in individual and group therapeutic activities. I will increase the patient's Risperdal to 4 mg at bedtime which is the dose he apparently was taking at home prior to admission. I reviewed the indication for Risperdal including to address psychotic symptoms as well as to reduce physiologic stress response related to acute substance withdrawal. I had an extensive discussion with the patient regarding withdrawal issues including expectations and time course of withdrawal. We discussed long-term issues relating to use his Suboxone and potential withdrawal to move away from the its use. I discussed issues relating to Risperdal including concerns relating to metabolic syndrome movement disorder issues. We will start the patient on Cogentin 1 mg twice a day. The restless legs that he is having at night may in part related to withdrawal as well as to his Risperdal use. Given his elevated MCV I will order a B12 and folate level, though the elevated MCV may also reflect a liver disease. I will order GGT. We will focus on stabilization and discharge planning.
[2021-10-08] MEDS ORDERED: risperiDONE 2 MG TAB PO SCH (21:00)
[2021-10-08] MEDS: traZODone HCL 100 MG TAB PO SCH (21:45)
[2021-10-08 23:16] LABS: Folate, Serum 7.4 ng/mL (4.40-31.00)
[2021-10-09] MEDS: IBUPROFEN 600 MG TAB PO PRN (08:01)
[2021-10-09 08:02] VITALS: BP 113/70; PULSE 98; RESP 16; TEMP 98.2
[2021-10-09] MEDS: BENZTROPINE MESYLATE 1 MG TAB PO SCH ×2 (08:02→21:19)
[2021-10-09] MEDS: ALBUTEROL HFA INHALER INHALATION SCH ×3 (08:02→21:18)
[2021-10-09] MEDS: NICOTINE 14MG/24HR PATCH TRANSDERM SCH (08:03)
[2021-10-09] MEDS: lamoTRIgine 25 MG TAB PO SCH (08:03)
--- NOTE | 2021-10-09 12:24 | P.PN ---
Progress Note - Text Progress Note Date: 10/09/21 CHIEF COMPLAINT The patient was having visual hallucinations and delusional thinking, and states he has a diagnosis of schizoaffective disorder. INTERVAL HISTORY The patient has been doing fair. He had a quiet day yesterday. He comes out of the unit and will wander about. He will interact a little with others though mostly keeps to himself. He attended 1 group yesterday. He said last night he did not sleep well though nursing documented he slept 6 hours as of 0500. Patient continues to report restless legs and does not feel the Cogentin had helped him. He requested that his Risperdal be switched to twice a day. He thought that might help quiet his legs down. We discussed that his restless legs may not be from Risperdal but rather due to withdrawal. I discussed his lab issues with the patient. It's noted that his MCV is elevated though his B12 and folate levels are in the normal range. He is folate is in the low-normal range and whether that would impact his MCV is uncertain. An alternative option is this may relate to liver disease, though his abnormal liver functions are only mildly elevated. I encouraged the patient to follow-up with his primary care physician in regards to these issues and that he would benefit from having labs redone and one to 2 weeks with his sustain free of alcohol use. It's noteworthy that I asked the patient about his who had visited yesterday. I wondered if she had any insights or observations about his progress. He stated that he does not feel "my is on my side." He did not elaborate. For the most part he appears to tolerate his psychotropic medications. It's no MENTAL STATUS EXAM The patient sat with some restlessness. He gave good eye contact. Answered questions appropriately. His thoughts were clear coherent and goal directed. He asked appropriate questions. Pay good attention to the conversation. His affect was somewhat constricted and anxious. His mood was dysphoric. He was somewhat distressed. There was no indication of thought disorder. He voiced no thoughts of harm. Cognition was clear. ASSESSMENT/PLAN I will continue the current diagnosis and treatment plan. We will continue to make efforts to engage the patient in individual and group therapeutic activities. I will change his Risperdal to 2 mg twice a day. I will increase trazodone 250 mg at bedtime. I discussed that he may be sleeping more in a light sleep stage related to his withdrawal which would explain his feeling that he is not sleeping well though nursing observing him sleeping a reasonable time. The patient seems to be motivated to continue to move away from habit-forming substances. He questioned whether or not he would be discharged tomorrow, stating that he understood that was possibly in the plans. We will focus on stabilization and discharge planning.
[2021-10-09] MEDS: risperiDONE 2 MG TAB PO SCH ×2 (12:36→21:19)
[2021-10-09] MEDS: DOCUSATE 100 MG CAP PO SCH ×2 (12:36→21:19)
[2021-10-09] MEDS ORDERED: traZODone HCL 100 MG TAB PO SCH (21:00)
[2021-10-10] MEDS: NICOTINE 14MG/24HR PATCH TRANSDERM SCH (08:55)
[2021-10-10] MEDS: DOCUSATE 100 MG CAP PO SCH (08:56)
[2021-10-10] MEDS: lamoTRIgine 25 MG TAB PO SCH (08:56)
[2021-10-10] MEDS: ALBUTEROL HFA INHALER INHALATION SCH (08:56)
[2021-10-10] MEDS: BENZTROPINE MESYLATE 1 MG TAB PO SCH (08:56)
[2021-10-10] MEDS: risperiDONE 2 MG TAB PO SCH (08:56)
--- NOTE | 2021-10-10 11:47 | P.DS ---
Providers Date of admission: 10/06/21 04:02 Expected date of discharge: 10/10/21 Attending physician: Moncho Goodrich MD Consults: 10/06/21 04:09 Consult Physician Routine Consulting Provider: David Garza Consult Reason/Comments: h and p Do you want consulting provider notified?: Yes, Notify in am Primary care physician: Deyanira Escobedo - Discharge Diagnosis(es) (1) Acute psychosis Current Visit: Yes Status: Acute Priority: High (2) Bipolar disorder Current Visit: Yes Status: Acute Priority: High (3) Nicotine dependence Current Visit: Yes Status: Chronic Priority: Medium (4) Methamphetamine abuse Current Visit: Yes Status: Chronic Priority: Medium (5) Opioid use disorder, mild, on maintenance therapy Current Visit: Yes Status: Chronic Priority: Medium Hospital Course: Admission HPI: Patient is a single, unemployed, 51-year-old male with a significant history of anxiety, bipolar disorder, and PTSD who presented to the emergency department under petition and certification by police for hallucinations. Patient presented to the hospital on 10/06/2021, brought in by police under petition and certification for hallucinations. As per petition filled out by operations officer, "Nico called police because people were in his trees with bows and arrows. Upon arrival, Vlad was saying he could see men in the tree. He stated he could see them currently. There were no men in this tree." As per initial certification, the patient was noted to be paranoid and endorsing significant delusions. As for EPS report, the patient did report that he had a substance abuse history and that he was detoxing from alcohol. He was presenting with significant elevation in psychomotor activity and was elusive with a lot of the questions that were asked of him. The patient did however confirm that he was seeing men in trees with bows and arrows. Upon evaluation on the psychiatric unit, the patient expresses that he is undergoing opiate withdrawal at this time. He states that he takes Suboxone at home. The patient did test positive for methamphetamines however vehemently denies that he uses any methamphetamines at all. The patient does endorse visual hallucinations stating that he was seeing people in the trees of his home. He reports that this is new to him as he has previously experienced auditory hallucinations in the past but not any visual hallucinations. He reports that these people in his trees did not speak or move but pointed arrows at him. In regards to mood, the patient is not endorsing any suicidal or homicidal ideation, intention, and/or plan. However he was noted in group this morning to note that he has been expressing some homicidal ideation. He is not reporting any auditory or visual hallucinations at this time. He reports no paranoia or other delusions. The patient states he is agreeable to taking medications as he has been in a psychiatric unit before and "knows the drill." As patient was experiencing significant withdrawals, he wish to go back to bed and sleep. Patient states that he has been previously diagnosed with bipolar and PTSD. His home medications include Risperdal, Lamictal, Wellbutrin, and Motrin. However, staff has noted that the patient has not picked up the scripts in quite some ti me. Does report at least 2 prior psychiatric hospitalizations but states that it has been many years. Patient reports that he was following up in outpatient provider however staff has been unable to confirm this. He reports 2 prior attempts at suicide. Hospital course: Upon admission to the unit patient was initially disorganized, psychotic, and experiencing opiate withdrawals. Patient was however directable and agreeable to commence treatment. Patient got along well with other patients on the unit and followed unit protocol. Patient was compliant with the medications and denied any side effects throughout hospital course. Patient was started on Risperdal for management of his mood stabilization and psychosis as well as his home medications of trazodone and Lamictal. He was also placed on a regimen for opiate withdrawal including Catapres, Zofran, Imodium, and Motrin. The patient also did test positive for methamphetamines however denied any methamphetamine use. The following day, the patient despite significant improvements in regards to his psychotic symptoms. The patient was cooperative and willing to stay over the weekend in order to be fully monitored and observed. Over the course of the hospitalization, the patient displayed gradual improvement in regards to his psychotic symptoms, participation, and overall mood. He became more future oriented. On the day of discharge, the patient is not reporting any suicidal or homicidal ideation, intention, or plan. He is not reporting any auditory or visual hallucinations. He denies any paranoia or delusions. The patient denies any firearms other weapons. The patient does have a significant history of substance abuse however was counseled on abstaining from all substances including alcohol, marijuana, amphetamines, and opiates. The patient was offered however declined inpatient substance-abuse rehabilitation. The patient was counseled on his medications the need for regular compliance and was encouraged to follow-up with his outpatient appointments for mental health and for primary care. Her to discharge, family meeting will be arranged by health social work professor has any questions and ensure safety. Mental status exam: General Appearance: Patient appears to be stated age is alert, pleasant, and cooperative. Patient is in no acute distress and has fair hygiene and grooming Behavior: Patient is calmly seated without any agitated behavior. Speech: Patient's speech is fluent and nonpressured. Mood/Affect: Patient reports their mood is "much better", affect is congruent and euthymic. Suicidality/Homicidality: Patient denies having any suicidal or homicidal ideation intent or plan. Perceptions: Patient denies any auditory or visual hallucinations. Though content/process: There is no evidence of any delusional thought content and thought process is linear and goal-directed. more future oriented Memory and concentration: AOX3, grossly intact for the purposes of this session. Can spell "WORLD" backwards correctly. Judgment and insight: Improved with guarded prognosis Vital Signs Temp 98.2 F 10/09/21 08:01 Pulse 98 10/09/21 08:01 Resp 16 10/09/21 08:01 BP 113/70 10/09/21 08:01 Pulse Ox 99 10/09/21 08:01 Intake & Output 10/09/21 10/10/21 10/10/21 18:59 06:59 18:59 Weight 68.3 kg Impression: Acute psychosis Bipolar disorder Nicotine dependence Methamphetamine abuse Opioid use disorder, on agonist therapy Plan: -Continue with discharge today as patient has improved and stabilized psychiatrically and is not currently an imminent threat to himself and/or others. Patient will remain at chronically elevated risk for harm to self and/or others due to his impulsivity and polysubstance abuse. -Continue medications: Risperdal 2 mg by mouth twice a day for psychosis/mood stabilization Trazodone 150 mg by mouth at bedtime for insomnia Lamictal 25 mg daily for bipolar disorder Cogentin 0.5 mg by mouth twice a day for side effects -Patient was counseled on the need for medication compliance and appropriate follow-up at mental health and also primary care for medical issues. Patient verbalized understanding and agreed. -Social work to arrange for and conduct family meeting to ensure safety upon discharge and answer any questions/concerns. Social work also to arrange for patients follow up appointments with for psychiatric care along with follow up with primary care provider. -Patient counseled on abstaining from recreational drugs and marijuana and alcohol. Was informed/educated on the adverse effects on their physical and mental health. Patient verbally agreed and understood. Patient was offered substance abuse treatment however declined at this time. -Patient was instructed to return to the hospital or seek immediate medical care if their psychiatric or medical symptoms do worsen or reoccur. -Psychoeducation and supportive therapy provided to patient. Risks and benefits of pharmacological treatment versus the risks and benefits of nontreatment weight and discussed. Informed consent discussion held. Common side effects of psychotropics discussed such as, but not limited to headache, GI disturbance, sexual dysfunction, movement disorders, sedation, and orthostatic hypotension. Life threatening and blackbox warnings of prescribed medications also discussed. Potential risks of operating a vehicle or heavy machinery discussed with patient at length. Advised on importance of compliance and a reliable and responsible manner. Patient advised to review FDA consumer labeling of all medications prior to taking. Patient verbalized understanding of potential risks, and agrees with current treatment plan. Patient advised to medically contact physician/emergency personnel if any acute changes in condition occur. Allergies Allergy/AdvReac Type Severity Reaction Status Date / Time No Known Allergies Allergy Verified 10/06/21 00:47 Laboratory Results WBC 8.2 k/uL (3.8-10.6) 10/07/21 10:12 RBC 4.09 m/uL (4.30-5.90) L 10/07/21 10:12 Hgb 14.9 gm/dL (13.0-17.5) 10/07/21 10:12 Hct 44.5 % (39.0-53.0) 10/07/21 10:12 MCV 108.9 fL (80.0-100.0) H 10/07/21 10:12 MCH 36.4 pg (25.0-35.0) H 10/07/21 10:12 MCHC 33.5 g/dL (31.0-37.0) 10/07/21 10:12 RDW 12.9 % (11.5-15.5) 10/07/21 10:12 Plt Count 246 k/uL (150-450) 10/07/21 10:12 MPV 7.5 10/07/21 10:12 Neutrophils % 77 % 10/07/21 10:12 Lymphocytes % 13 % 10/07/21 10:12 Monocytes % 6 % 10/07/21 10:12 Eosinophils % 1 % 10/07/21 10:12 Basophils % 0 % 10/07/21 10:12 Neutrophils # 6.3 k/uL (1.3-7.7) 10/07/21 10:12 Lymphocytes # 1.1 k/uL (1.0-4.8) 10/07/21 10:12 Monocytes # 0.5 k/uL (0-1.0) 10/07/21 10:12 Eosinophils # 0.1 k/uL (0-0.7) 10/07/21 10:12 Basophils # 0.0 k/uL (0-0.2) 10/07/21 10:12 Macrocytosis Moderate 10/07/21 10:12 Sodium 137 mmol/L (137-145) 10/08/21 09:55 Potassium 3.6 mmol/L (3.5-5.1) 10/08/21 09:55 Chloride 103 mmol/L (98-107) 10/08/21 09:55 Carbon Dioxide 28 mmol/L (22-30) 10/08/21 09:55 Anion Gap 6 mmol/L 10/08/21 09:55 BUN 16 mg/dL (9-20) 10/08/21 09:55 Creatinine 0.77 mg/dL (0.66-1.25) 10/08/21 09:55 Est GFR (CKD-EPI)AfAm >90 (>60 ml/min/1.73 sqM) 10/08/21 09:55 Est GFR (CKD-EPI)NonAf >90 (>60 ml/min/1.73 sqM) 10/08/21 09:55 Glucose 129 mg/dL (74-99) H 10/08/21 09:55 POC Glucose (mg/dL) 217 mg/dL (75-99) H 10/06/21 13:35 POC Glu Ribbon [employer] Tender DRISS Jennie Mays 10/06/21 13:[address] Glu mg/dL 115 10/07/21 10:12 Hemoglobin A1c 5.6 % (0.0-6.0) 10/07/21 10:12 Calcium 9.5 mg/dL (8.4-10.2) 10/08/21 09:55 Total Bilirubin 1.0 mg/dL (0.2-1.3) 10/08/21 09:55 GGT 154 U/L (15-73) H 10/08/21 16:22 AST 136 U/L (17-59) H 10/08/21 09:55 ALT 110 U/L (4-49) H 10/08/21 09:55 Alkaline Phosphatase 87 U/L (38-126) 10/08/21 09:55 Total Protein 6.6 g/dL (6.3-8.2) 10/08/21 09:55 Albumin 4.1 g/dL (3.5-5.0) 10/08/21 09:55 Triglycerides 99.10 mg/dL (0.00-149.00) 10/07/21 10:12 Cholesterol 170.00 mg/dL (0.00-200.00) 10/07/21 10:12 LDL Cholesterol, Calc 61.6 mg/dL (0.0-131.0) 10/07/21 10:12 VLDL Cholesterol, Calc 19.82 mg/dL (5.00-40.00) 10/07/21 10:12 HDL Cholesterol 88.60 mg/dL (40.00-60.00) H 10/07/21 10:12 Cholesterol/HDL Ratio 1.92 Ratio 10/07/21 10:12 Vitamin B12 811.0 pg/mL (200.0-944.0) 10/08/21 16:22 Folate 7.40 ng/mL (4.40-31.00) 10/08/21 16:22 TSH 0.975 mIU/L (0.465-4.680) 10/07/21 10:12 Urine Opiates Screen Not Detected (NotDetected) 10/06/21 01:54 Ur Oxycodone Screen Not Detected (NotDetected) 10/06/21 01:54 Urine Methadone Screen Not Detected (NotDetected) 10/06/21 01:54 Ur Propoxyphene Screen Not Detected (NotDetected) 10/06/21 01:54 Ur Barbiturates Screen Not Detected (NotDetected) 10/06/21 01:54 U Tricyclic Antidepress Not Detected (NotDetected) 10/06/21 01:54 Ur Phencyclidine Scrn Not Detected (NotDetected) 10/06/21 01:54 Ur Amphetamines Screen Detected (NotDetected) H 10/06/21 01:54 U Methamphetamines Scrn Detected (NotDetected) H 10/06/21 01:54 U Benzodiazepines Scrn Not Detected (NotDetected) 10/06/21 01:54 Urine Cocaine Screen Not Detected (NotDetected) 10/06/21 01:54 U Marijuana (THC) Screen Detected (NotDetected) H 10/06/21 01:54 Coronavirus (PCR) Not Detected (Not Detectd) 10/06/21 03:20 Patient Condition at Discharge: Stable Plan - Discharge Summary Discharge Rx Participant: No New Discharge Prescriptions: New Benztropine Mesylate [Cogentin] 0.5 mg PO BID 30 Days tab Nicotine 14Mg/24Hr Patch [Habitrol] 1 patch TRANSDERM DAILY 30 Days patch lamoTRIgine [LaMICtal] 25 mg PO DAILY 30 Days tab risperiDONE [RisperDAL] 2 mg PO BID 30 Days tab Albuterol Inhaler [Ventolin Hfa Inhaler] 2 puff INHALATION RT-TID 30 Days gm traZODone HCL [Desyrel] 150 mg PO HS 30 Days tab Continue Ibuprofen [Motrin] 600 mg PO Q6HR PRN #30 tab PRN Reason: Pain Discontinued buPROPion [Wellbutrin] 100 mg PO BID lamoTRIgine [LaMICtal] 25 mg PO DAILY risperiDONE 4 mg PO DAILY Discharge Medication List Ibuprofen [Motrin] 600 mg PO Q6HR PRN #30 tab 02/24/18 [Rx] Albuterol Inhaler [Ventolin Hfa Inhaler] 2 puff INHALATION RT-TID 30 Days gm 10/10/21 [Rx] Benztropine Mesylate [Cogentin] 0.5 mg PO BID 30 Days tab 10/10/21 [Rx] Nicotine 14Mg/24Hr Patch [Habitrol] 1 patch TRANSDERM DAILY 30 Days patch 10/10/21 [Rx] lamoTRIgine [LaMICtal] 25 mg PO DAILY 30 Days tab 10/10/21 [Rx] risperiDONE [RisperDAL] 2 mg PO BID 30 Days tab 10/10/21 [Rx] traZODone HCL [Desyrel] 150 mg PO HS 30 Days tab 10/10/21 [Rx] Follow up Appointment(s)/Referral(s): Gregg Mcmillan MD [Primary Care Provider] - 1 Week Activity/Diet/Wound Care/Special Instructions: Activity and diet as tolerated. Avoid the use of street drugs and alcohol. Take all medications as prescribed. When you are in need of refills on your medications please contact your medical provider and/or outpatient psychiatrist to have this done. Please go to scheduled outpatient appointment for aftercare treatment. If symptoms return or become worse, call the crisis line at and/or go to the nearest emergency room for evaluation Discharge Disposition: HOME SELF-CARE
== END 2021-10-10 13:23 | disposition home or self-care (01) | DRG 885 ==
LOC: EC 00:28 → 3MHU 04:02
PROVIDERS: ADMIT Psychiatry & Neurology Psychiatry; ATTEND Psychiatry & Neurology Psychiatry
DX: F23 Brief psychotic disorder (principal); J44.1 Chronic obstructive pulmonary disease with (acute) exacerbation; F11.23 Opioid dependence with withdrawal; F15.10 Other stimulant abuse, uncomplicated; F31.9 Bipolar disorder, unspecified; Z20.822 Contact with and (suspected) exposure to COVID-19; R45.850 Homicidal ideations; F43.10 Post-traumatic stress disorder, unspecified; G47.00 Insomnia, unspecified; G25.81 Restless legs syndrome; F12.90 Cannabis use, unspecified, uncomplicated; K76.9 Liver disease, unspecified; F17.210 Nicotine dependence, cigarettes, uncomplicated; Z71.6 Tobacco abuse counseling; Z79.899 Other long term (current) drug therapy; Z87.19 Personal history of other diseases of the digestive system; Z87.39 Personal history of other diseases of the musculoskeletal system and connective tissue; Z56.0 Unemployment, unspecified; Z98.890 Other specified postprocedural states; Z71.41 Alcohol abuse counseling and surveillance of alcoholic; Z71.51 Drug abuse counseling and surveillance of drug abuser
CPT/HCPCS: 70250; 80053; 80061; 80306; 82075; 82607; 82746; 82977; 83036; 84443; 85025; 87635; 99285

== ENCOUNTER 2023-12-05 06:58 | Day surgery (SDC) | payer OTHER ==
[2023-11-30 15:54] VITALS: BMI 23.7
[2023-12-05] MEDS: LACTATED RINGERS 1,000 ML IV SCH (07:42)
[2023-12-05 07:54] VITALS: TEMP 97.3
[2023-12-05] MEDS ORDERED: PROPOFOL 10 MG/ML 20 ML VIAL IV ONE (08:26)
--- NOTE | 2023-12-05 08:38 | P.PCN ---
Date of Procedure: 12/05/23 Procedure(s) Performed: BRIEF HISTORY: Patient is a 53-year-old pleasant white male scheduled for an elective colonoscopy as a part of Screening for colon cancer. PROCEDURE PERFORMED: Colonoscopy. PREOPERATIVE DIAGNOSIS: Screening for colon cancer. IV sedation per Anesthesia. PROCEDURE: After informed consent was obtained, the patient, was brought into the endoscopy unit. IV sedation was administered by Anesthesia under continuous monitoring. Digital rectal examination was normal. Initially the Olympus CF-160 flexible video colonoscope was then inserted in the rectum, gradually advanced into the cecum without any difficulty. Careful examination was performed as the scope was gradually being withdrawn. Ileocecal valve and the appendiceal orifice were visualized and appeared normal. Prep was excellent. Mucosa of the cecum, ascending colon, transverse colon, descending colon, sigmoid colon, and rectum appeared normal. Retroflexion was performed in the rectum and no lesions were seen. The patient tolerated the procedure well. IMPRESSION: Normal-appearing colon from rectum to cecum with no evidence of colorectal neoplasia . RECOMMENDATIONS: Findings of this examination were discussed with the patient as well as his family. He was advised to have a repeat screening colonoscopy in 10 years.
[2023-12-05 09:16] VITALS: BP 123/77; PULSE 75; RESP 16
== END 2023-12-05 09:20 | disposition home or self-care (01) ==
LOC: ORWHC2ENDO 06:58
PROVIDERS: ATTEND Internal Medicine Gastroenterology
DX: Z12.11 Encounter for screening for malignant neoplasm of colon (principal); I10 Essential (primary) hypertension; F17.210 Nicotine dependence, cigarettes, uncomplicated; Z79.899 Other long term (current) drug therapy
CPT/HCPCS: 45378; J2704

== ENCOUNTER → 2024-11-05 | Outpatient (CLI) | payer OTHER ==
--- NOTE | 2024-11-05 08:37 | US ---
EXAMINATION TYPE: US abdomen limited DATE OF EXAM: 11/05/2024 COMPARISON: NONE CLINICAL INDICATION: Male, 54 years old with history of R74.01 ELEVATION OF LEVELS OF LIVER TRANSAMIN ASE L; Abnormal LFT's TECHNIQUE: Grayscale and color Doppler imaging of the right upper quadrant was performed. FINDINGS: EXAM MEASUREMENTS: Liver Length: 16.3 cm Gallbladder Wall: 0.1 cm CBD: 0.4 cm Right Kidney: 10.9 x 5.0 x 4.7 cm RAND TACKER NOTES: Pancreas: 3mm panc duct, tail obscured by overlying bowel gas Liver: Very heterogeneous, possible small cystic lesions medial left lobe, largest= 0.8 cm Gallbladder: wnl Evidence for sonographic Hess's sign: No CBD: wnl Right Kidney: No evidence of hydro, lower pole gassed out The visualized portions of the pancreas are unremarkable. Heterogenous appearance of the liver with h yperechoic appearance. No overt surface nodularity. Couple of subcentimeter simple hepatic cysts iden tified. No gallbladder shadowing calculi, wall thickening or surrounding fluid. Negative sonographic Hess's sign. Common bile duct is within normal limits. Right kidney demonstrates no hydronephrosis or visualized shadowing calculi or solid mass. IMPRESSION: Heterogenous hyperechoic appearance of the liver with diffuse subcentimeter simple appearing cysts. F indings suggest hepatocellular disease most commonly seen with hepatic steatosis. [facility], , 11/05/2024 8:35 AM
[2024-11-05 15:41] LABS: Basophils # (A) 0.02 X 10*3/uL (0.00-0.10); Basophils % (A) 0.3 %; Eosinophils # (A) 0.19 X 10*3/uL (0.04-0.35); Eosinophils % (A) 2.9 %; HCT 41.9 % (39.6-50.0); Lymphocytes # (A) 1.97 X 10*3/uL (0.90-5.00); Lymphocytes % (A) 29.8 %; MCH 34.6 pg (27.0-32.0); MCHC 33.4 g/dL (32.0-37.0); MCV 103.5 FL (80.0-97.0); Mean Platelet Volume 9.6 FL (9.5-12.2); Monocytes # (A) 0.62 X 10*3/uL (0.20-1.00); Monocytes % (A) 9.4 %; NRBC Per 100 WBC 0 X 10*3/uL (0.00-0.01); Neutrophils # (A) 3.78 X 10*3/uL (1.80-7.70); Neutrophils % (A) 57.3 %; Platelet Count 265 X 10*3/uL (140-440); RBC 4.05 X 10*6/uL (4.40-5.60); RDW 12.2 % (11.5-14.5)
[2024-11-05 16:12] LABS: Hepatitis B Surface Antigen Nonreactive (Nonreactive); Hepatitis C IgG Antibody Nonreactive (Nonreactive)
[2024-11-05 16:25] LABS: ALT 18 U/L (10-49); AST 18 U/L (14-35); Albumin 4.3 g/dL (3.8-4.9); Albumin/Globulin Ratio 2.15 Ratio (1.60-3.17); Alkaline Phosphatase 62 U/L (41-126); BUN/Creat Ratio 15.71 Ratio (12.00-20.00); Calcium 9.2 mg/dL (8.7-10.3); Carbon Dioxide 25.9 mmol/L (21.6-31.8); Chloride 106 mmol/L (96-109); Glucose 117 mg/dL (70-110); Potassium 4.5 mmol/L (3.5-5.5); Sodium 143 mmol/L (135-145); Total Bilirubin 0.4 mg/dL (0.3-1.2); Total Protein 6.3 g/dL (6.2-8.2)
== END | disposition home or self-care (01) ==
LOC: RADUSWWP 07:50
PROVIDERS: ATTEND Internal Medicine Gastroenterology
DX: K76.89 Other specified diseases of liver (principal); R74.01 Elevation of levels of liver transaminase levels
CPT/HCPCS: 76705; 80053; 81596; 85025; 86803; 87340